=== PATIENT | female | born 1980 | race American Indian/Alaskan Native ===

== ENCOUNTER 2019-01-22 08:51 | Emergency (ER) | payer OTHER ==
[2019-01-22] MEDS ORDERED: MORPHINE IV ONE (09:25)
[2019-01-22] MEDS ORDERED: ZOFRAN IV ONE (09:25)
[2019-01-22] MEDS ORDERED: NACL 0.9% 1000 ML 1,000 ML IV ONE (09:25)
--- NOTE | 2019-01-22 09:29 | Emergency Department Report ---
ED Abdominal Pain HPI - General Chief Complaint: Abdominal Pain Stated Complaint: ABD PAIN AND LEFT SIDE Time Seen by Provider: 01/22/19 09:23 Source: patient Mode of arrival: Ambulatory Limitations: No Limitations - History of Present Illness Initial Comments: Patient is 38 years old female with no significant past medical history. Patient presented to the ER complaining of sudden onset of left flank pain and left lower quadrant pain started this morning. Patient describes her pain as sharp, 10 out of 10. Patient denied any nausea or vomiting. The patient denied any fever or chills. MD Complaint: abdominal pain, flank pain -: This morning Location: LLQ, L flank Radiation: none Migration to: no migration Severity: severe Severity scale (0 -10): 10 Quality: sharp - Related Data Allergies Allergy/AdvReac Type Severity Reaction Status Date / Time No Known Allergies Allergy Verified 01/22/19 08:53 ED Review of Systems ROS: Stated complaint: ABD PAIN AND LEFT SIDE Other details as noted in HPI Comment: All other systems reviewed and negative Constitutional: denies: chills, fever Respiratory: denies: cough, orthopnea, shortness of breath, SOB with exertion, SOB at rest Cardiovascular: denies: chest pain Gastrointestinal: abdominal pain. denies: nausea, vomiting, diarrhea, constipation, hematemesis, melena, hematochezia Musculoskeletal: back pain Neurological: denies: headache, weakness, numbness, paresthesias, confusion, abnormal gait ED Past Medical Hx - Past Medical History Previous Medical History?: No - Surgical History Past Surgical History?: Yes Additional Surgical History: 2 c section - Social History Smoking Status: Never Smoker Substance Use Type: None ED Physical Exam - General Limitations: No Limitations General appearance: alert, in distress - Head Head exam: Present: atraumatic, normocephalic, normal inspection - Eye Eye exam: Present: normal appearance - ENT ENT exam: Present: normal exam, normal orophraynx, mucous membranes moist - Neck Neck exam: Present: normal inspection, full ROM. Absent: tenderness, meningismus, lymphadenopathy, thyromegaly - Respiratory Respiratory exam: Present: normal lung sounds bilaterally - Cardiovascular Cardiovascular Exam: Present: regular rate, normal rhythm, normal heart sounds - GI/Abdominal GI/Abdominal exam: Present: soft, normal bowel sounds. Absent: distended, tenderness, guarding, rebound, rigid, organomegaly, mass, bruit, pulsatile mass - Extremities Exam Extremities exam: Present: normal inspection, full ROM, normal capillary refill - Back Exam Back exam: Present: normal inspection, full ROM, CVA tenderness (L). Absent: tenderness, CVA tenderness (R), muscle spasm, paraspinal tenderness, vertebral tenderness - Neurological Exam Neurological exam: Present: alert, oriented X3, CN II-XII intact, normal gait, reflexes normal - Skin Skin exam: Present: warm, intact, normal color ED Course Vital Signs 01/22/19 01/22/19 01/22/19 08:55 10:10 10:23 Temperature 98.3 F Pulse Rate 95 H Respiratory 16 18 16 Rate Blood Pressure 136/92 Blood Pressure [Left] O2 Sat by Pulse 100 Oximetry 01/22/19 11:16 Temperature 97.6 F Pulse Rate 85 Respiratory 17 Rate Blood Pressure Blood Pressure 177/76 [Left] O2 Sat by Pulse 100 Oximetry ED Medical Decision Making - Lab Data Result diagrams: 01/22/19 09:29 01/22/19 09:29 - Radiology Data Radiology results: report reviewed Referring Physician: JONE WADDELL Patient Name: NEYDA SIMS Date of : 1980 Sex: Female Report Date: 2019-01-22 Report Status: [place] [address] Cat Scan Report Signed Patient: NEYDA SIMS MR#: [id number] : 1980 Acct:[id number] Age/Sex: 38 / F ADM Date: 01/22/19 Loc: ED Attending Dr: Ordering Physician: JONE WADDELL Date of Service: 01/22/19 Procedure(s): CT abdomen pelvis w con Accession Number(s): [id number] cc: JONE WADDELL CT ABDOMEN PELVIS WITH CONTRAST: HISTORY: Abdominal pain, left flank pain, left lower quadrant pain. COMPARISON: none. TECHNIQUE: Helical CT in 1.25mm intervals following IV contrast. Sagittal and coronal reconstructions. FINDINGS: Lung bases: Normal. Liver: Normal. Biliary system: Normal. Pancreas: Normal. Spleen: Normal. Kidneys/ureters/bladder: A 4 mm calculus is identified in the distal left ureter. There is mild upstream left hydronephrosis. No additional ureteral or renal stones are identified. The right kidney and collecting system are unremarkable. The bladder is within normal limits. Adrenal glands: Normal. Aorta: Normal. Intestines: Normal. Appendix: Normal. Pelvic viscera: A 2.1 cm right ovarian cyst is identified. The uterus and left adnexa are unremarkable. Ascites: None. Adenopathy: None. Musculoskeletal: Normal. IMPRESSION: 4 mm calculus in the distal left ureter, mildly obstructing. 2.1 cm right ovarian cyst. Transcribed By: TTR Dictated By: PHILIP PAGAN JR, MD Electronically Authenticated By: PHILIP PAGAN JR, MD Signed Date/Time: 01/22/19 1129 DD/ 1116 TD/TT: 01/22/19 1129 - Medical Decision Making Patient is 38 years old female with no significant past medical history. Patient presented to the ER complaining of sudden onset of left flank pain and left lower quadrant pain started this morning. Patient describes her pain as sharp, 10 out of 10. Patient denied any nausea or vomiting. The patient denied any fever or chills. Patient receive morphine and Toradol for pain. Patient stated that she is feeling much better. A CT abdomen and pelvis showed a 4 mm distal ureteric stone with mild obstruction. Patient advised to follow-up with a urologist in the next 2-3 days and to return to the ER if symptoms are not improved. Critical care attestation.: If time is entered above; I have spent that time in minutes in the direct care of this critically ill patient, excluding procedure time. ED Disposition Clinical Impression: Abdominal pain, Ureteric colic Disposition: - TO HOME OR SELFCARE Is pt being admited?: No Condition: Stable Instructions: Abdominal Pain (ED), Kidney Stones (ED) Referrals: [facility] [Other] - 3-5 Days TERESSA OG MD [Staff Physician] - 3-5 Days
[2019-01-22 09:42] LABS: Basophils % (Auto) 0.2 % (0.0-1.8); Eosinophils # (Auto) 0.1 K/mm3 (0.0-0.4); Eosinophils % (Auto) 0.9 % (0.0-4.3); Hematocrit 32.4 % (30.3-42.9); Hemoglobin 10.2 gm/dl (10.1-14.3); Lymphocytes # (Auto) 1.1 K/mm3 (1.2-5.4); Lymphocytes % (Auto) 17.3 % (13.4-35.0); Mean Corpuscular HGB Conc 32 % (30-34); Monocytes # (Auto) 0.4 K/mm3 (0.0-0.8); Monocytes % (Auto) 6.4 % (0.0-7.3); Platelet Count 278 K/mm3 (140-440); Red Blood Count 4.88 M/mm3 (3.65-5.03); Red Cell Distribution Width 18.7 % (13.2-15.2)
[2019-01-22 09:44] LABS: Mean Corpuscular Volume 67 fl (79-97)
[2019-01-22 10:03] LABS: Albumin 4.3 g/dL (3.9-5); BUN/Creatinine Ratio 17; Blood Urea Nitrogen 12 mg/dL (7-17); Calcium 9.3 mg/dL (8.4-10.2); Hemolysis Index 165
[2019-01-22 10:09] LABS: Alanine Aminotransferase 12 units/L (7-56); Bilirubin,Direct < 0.2 mg/dL (0-0.2)
[2019-01-22] MEDS ORDERED: TORADOL IV ONE (10:16)
[2019-01-22] MEDS ORDERED: TORADOL ONE (10:20)
[2019-01-22 10:41] LABS: Bilirubin,Urine NEG (Negative); Blood,Urine LG (Negative); Color,Urine Yellow (Yellow); Mucus,Urine FEW /HPF; Urobilinogen,Urine < 2.0 mg/dL (<2.0)
[2019-01-22 10:50] LABS: HCG Qualitative,Urine Negative (Negative); RBC,Urine > 182.0 /HPF (0.0-6.0)
[2019-01-22 11:16] VITALS: BP 177/76
--- NOTE | 2019-01-22 11:51 | Cat Scan Report ---
CT ABDOMEN PELVIS WITH CONTRAST: HISTORY: Abdominal pain, left flank pain, left lower quadrant pain. COMPARISON: none. TECHNIQUE: Helical CT in 1.25mm intervals following IV contrast. Sagittal and coronal reconstructions. FINDINGS: Lung bases: Normal. Liver: Normal. Biliary system: Normal. Pancreas: Normal. Spleen: Normal. Kidneys/ureters/bladder: A 4 mm calculus is identified in the distal left ureter. There is mild upstream left hydronephrosis. No additional ureteral or renal stones are identified. The right kidney and collecting system are unremarkable. The bladder is within normal limits. Adrenal glands: Normal. Aorta: Normal. Intestines: Normal. Appendix: Normal. Pelvic viscera: A 2.1 cm right ovarian cyst is identified. The uterus and left adnexa are unremarkable. Ascites: None. Adenopathy: None. Musculoskeletal: Normal. IMPRESSION: 4 mm calculus in the distal left ureter, mildly obstructing. 2.1 cm right ovarian cyst.
== END 2019-01-22 12:14 | disposition home or self-care (01) ==
LOC: ED 08:51
DX: N23 Unspecified renal colic (principal)
CPT/HCPCS: 36415; 74177; 80048; 80076; 81001; 81025; 83690; 84703; 85025; 96361; 96374; 96375; 99284; J1885; J2270; J2405; J7030; Q9967

== ENCOUNTER 2019-01-23 19:59 | Emergency (ER) | payer OTHER ==
[2019-01-23 21:05] VITALS: BP 112/7
[2019-01-23 22:01] LABS: Basophils % (Auto) 0.3 % (0.0-1.8); Eosinophils % (Auto) 0.1 % (0.0-4.3); Hematocrit 32.3 % (30.3-42.9); Hemoglobin 10.2 gm/dl (10.1-14.3); Lymphocytes # (Auto) 0.6 K/mm3 (1.2-5.4); Lymphocytes % (Auto) 11.5 % (13.4-35.0); Mean Corpuscular HGB Conc 32 % (30-34); Mean Corpuscular Volume 67 fl (79-97); Monocytes # (Auto) 0.4 K/mm3 (0.0-0.8); Monocytes % (Auto) 7.3 % (0.0-7.3); Platelet Count 247 K/mm3 (140-440); Red Blood Count 4.84 M/mm3 (3.65-5.03); Red Cell Distribution Width 18.5 % (13.2-15.2)
[2019-01-23 22:22] LABS: Alanine Aminotransferase 12 units/L (7-56); Albumin 4.5 g/dL (3.9-5); BUN/Creatinine Ratio 20; Blood Urea Nitrogen 14 mg/dL (7-17); Calcium 9.5 mg/dL (8.4-10.2); Hemolysis Index 2
== END 2019-01-24 00:02 | disposition left against medical advice (07) ==
LOC: ED 19:59
DX: R10.9 Unspecified abdominal pain (principal); Z53.21 Procedure and treatment not carried out due to patient leaving prior to being seen by health care provider
CPT/HCPCS: 36415; 80053; 84703; 85025